=== PATIENT | female | born 2000 | race Two or more races ===

== ENCOUNTER 2024-03-30 10:51 | Emergency (ER) | payer OTHER ==
[~2024-03-30] VITALS: Ht 157.5 cm; Wt 59.0 kg
[2024-03-30] MEDS ORDERED: FOLIC ACID20 MG (11:02)
[2024-03-30] MEDS ORDERED: METOCLOPRAMIDE HCL 5 MG/ML VIAL IV ONE (12:45)
[2024-03-30] MEDS ORDERED: FAMOTIDINE/PF 20 MG/2 ML VIAL IV ONE (12:45)
[2024-03-30 13:30] LABS: HEMATOCRIT 34.1 % (36.0-45.00); HEMOGLOBIN 11.7 g/dL (12.0-15.00); MEAN CELL VOLUME 86.1 fL (80.00-100.00); MEAN CORPUSCULAR HEMOGLOBIN 29.6 pg (27.00-32.0); MEAN CORPUSCULAR HGB CONC 34.4 g/dl (32.0-36.0); PLATELET COUNT 316 K/uL (150-450); RED BLOOD COUNT 3.96 M/uL (4.00-6.00); RED CELL DISTRIBUTION WIDTH 15.5 % (11.5-14.5)
[2024-03-30 14:46] LABS: CALCIUM 9.7 mg/dL (8.5-10.1); CREATININE SERUM 0.62 mg/dL (0.55-1.02); GFR 119.28; POTASSIUM 4.24 mEq/L (3.5-5.1)
[2024-03-30] MEDS ORDERED: DICLEGIS DR 101 EACH PO (14:59)
== END 2024-03-30 17:03 | disposition home or self-care (01) ==
LOC: ER 10:53
PROVIDERS: General Practice
DX: O21.9 Vomiting of pregnancy, unspecified (principal); Z3A.09 9 weeks gestation of pregnancy

== ENCOUNTER 2024-04-29 13:05 | Emergency (ER) | payer OTHER ==
[~2024-04-29] VITALS: Ht 157.5 cm; Wt 61.7 kg
[~2024-04-29 13:05] MED LIST: DICLEGIS DR 101 EACH PO; FOLIC ACID20 MG
[2024-04-29 18:32] LABS: HEMATOCRIT 34.1 % (36.0-45.00); HEMOGLOBIN 11.8 g/dL (12.0-15.00); MEAN CELL VOLUME 86.6 fL (80.00-100.00); MEAN CORPUSCULAR HGB CONC 34.6 g/dl (32.0-36.0); PLATELET COUNT 289 K/uL (150-450); RED BLOOD COUNT 3.94 M/uL (4.00-6.00); RED CELL DISTRIBUTION WIDTH 15.3 % (11.5-14.5)
[2024-04-29] MEDS ORDERED: IPRATROPIUM/ALBUTEROL SULFATE 3 ML AMPUL.NEB IH SCH (20:00)
[2024-04-29] MEDS ORDERED: IPRATROPIUM/ALBUTEROL SULFATE 3 ML AMPUL.NEB IH ONE (20:39)
[2024-04-29] MEDS ORDERED: GILTUSS HONEY118 ML PO (22:31)
[2024-04-29] MEDS ORDERED: ALBUTEROL2.5 MG/3 M IH (22:34)
== END 2024-04-29 22:39 | disposition home or self-care (01) ==
LOC: ER 13:07
PROVIDERS: Preventive Medicine Public Health & General Preventive Medicine
DX: B34.9 Viral infection, unspecified (principal); Z20.822 Contact with and (suspected) exposure to COVID-19

== ENCOUNTER 2024-07-23 23:55 | Emergency (ER) | payer OTHER ==
[~2024-07-23] VITALS: Ht 167.6 cm; Wt 66.2 kg
[~2024-07-23 23:55] MED LIST changes: +ALBUTEROL2.5 MG/3 M IH; +GILTUSS HONEY118 ML PO
[2024-07-24] MEDS ORDERED: ORPHENADRINE CITRATE 30 MG/ML AMPUL IM STA (03:25)
[2024-07-24] MEDS ORDERED: TRAMADOL HCL 50 MG TABLET PO STA (03:27)
[2024-07-24] MEDS ORDERED: KETOROLAC TROMETHAMINE 60 MG VIAL IM ONE (03:34)
[2024-07-24] MEDS ORDERED: ORPHENADRINE CITRATE 30 MG/ML AMPUL ONE (03:39)
== END 2024-07-24 03:42 | disposition home or self-care (01) ==
LOC: ER 23:56
DX: M54.41 Lumbago with sciatica, right side (principal); Z3A.26 26 weeks gestation of pregnancy

== ENCOUNTER 2024-09-18 20:12 | Inpatient (IN) | payer OTHER ==
[~2024-09-18] VITALS: Ht 157.5 cm; Wt 68.0 kg
[2024-09-18 19:25] VITALS: BP 103/65
[2024-09-18] MEDS ORDERED: BETAMETHASONE ACETATE,SOD PHOS 30 MG/5 ML ML IM STA (20:27)
[2024-09-18] MEDS ORDERED: AMPICILLIN SODIUM 2,000 MG VIAL IV ONE (20:30)
[2024-09-18] MEDS ORDERED: RINGERS SOLUTION,LACTATED 1,000 ML IV SCH (20:30)
[2024-09-18 21:21] LABS: BASO % 0.5 % (0.1-1.2); EOS # 0.21 (0.04-0.54); EOS % 2.4 % (0.7-7.0); HEMATOCRIT 29.4 % (34.1-44.9); HEMOGLOBIN 9.4 g/dL (11.2-15.7); LYMPH % 18.2 % (19.3-53.1); MEAN CORPUSCULAR HEMOGLOBIN 27.3 pg (25.6-32.2); MONO # 0.59 (0.24-0.82); MONO % 6.7 % (4.7-12.5); NEUT # 6.26 (1.56-6.13); PLATELET COUNT 314 K/uL (163-369); RED BLOOD COUNT 3.44 M/uL (3.93-5.22); RED CELL DISTRIBUTION WIDTH 13.9 % (11.6-14.4)
[2024-09-18 21:22] LABS: PH,URINE 6.5 (5.0-8.0); URINE APPEARANCE Clear; URINE BILIRRUBIN Negative (NEGATIVE); URINE BLOOD Negative; URINE COLOR Yellow; URINE GLUCOSE Negative (NEGATIVE); URINE KETONE Negative (NEGATIVE); URINE LEUKOCYTE Small; URINE NITRATE Negative; URINE PROTEIN Negative (NEGATIVE); URINE UROBILINOGEN 0.2 E.U./dl
[2024-09-18 21:26] LABS: URINE BACTERIA 565.4 uL (0.0-1933); URINE EPITHELIAL CELLS 17.7 uL (0.0-38.8); URINE RBC 7.6 uL (0.0-20.8); URINE WBC 11.7 uL (0.0-23.2)
[2024-09-18] MEDS ORDERED: PRENATABS FA T1 EACH PO (21:49)
[2024-09-18 21:50] LABS: BILIRUBIN TOTAL 0.24 mg/dL (0.3-1.2); CALCIUM 9.3 mg/dL (8.5-10.1); CREATININE SERUM 0.64 mg/dL (0.55-1.02); GLOBULINA 3.8 G/DL (2.4-3.5); POTASSIUM 4.06 mEq/L (3.5-5.1); TOTAL PROTEIN 6.8 gm/dL (6.4-8.2)
[2024-09-18] MEDS ORDERED: ACETAMINOPHEN 500 MG GEL..CAP PO PRN (23:00)
[2024-09-18] MEDS ORDERED: NIFEDIPINE 30 MG TAB.SA.OSM PO SCH (23:00)
[2024-09-18 23:21] VITALS: BP 102/63
[2024-09-19] MEDS ORDERED: AMPICILLIN SODIUM 1,000 MG VIAL IV SCH (02:00)
[2024-09-19 03:57] VITALS: BP 93/53
[2024-09-19 07:30] VITALS: BP 95/57
[2024-09-19] MEDS ORDERED: SOD FERRIC GLUC COMPLX/SUCROSE 62.5 MG/5 ML AMPUL IV ONE (08:49)
[2024-09-19] MEDS ORDERED: SOD FERRIC GLUC COMPLX/SUCROSE 125 MG in 0.9 % SODIUM CHLORIDE 100 ML IV SCH (09:00)
[2024-09-19 12:30] VITALS: BP 98/63
[2024-09-19 14:34] VITALS: BP 112/70
[2024-09-19 15:56] VITALS: BP 109/68
[2024-09-19 20:00] VITALS: BP 102/52
[2024-09-19] MEDS ORDERED: BETAMETHASONE ACETATE,SOD PHOS 30 MG/5 ML ML IM NR (21:00)
[2024-09-20 00:29] VITALS: BP 99/55
[2024-09-20 08:00] VITALS: BP 92/60
== END 2024-09-20 13:39 | disposition home or self-care (01) | DRG 833 ==
LOC: OB/GYN 20:12 → LDR 20:12 → OB/GYN 09-19 13:54
PROVIDERS: ADMIT Obstetrics & Gynecology; ATTEND Obstetrics & Gynecology
PROC: 4A1HXCZ Monitoring of Products of Conception, Cardiac Rate, External Approach (ICD-10-PCS; principal; 2024-09-18)
PROC: BY4FZZZ Ultrasonography of Third Trimester, Single Fetus (ICD-10-PCS; 2024-09-20)
PROC: BU4CZZZ Ultrasonography of Uterus and Ovaries (ICD-10-PCS; 2024-09-20)
DX: O60.03 Preterm labor without delivery, third trimester (principal); O26.843 Uterine size-date discrepancy, third trimester; O36.8130 Decreased fetal movements, third trimester, not applicable or unspecified; O32.1XX0 Maternal care for breech presentation, not applicable or unspecified; Z3A.34 34 weeks gestation of pregnancy

== ENCOUNTER 2024-10-14 07:43 | Inpatient (IN) | payer OTHER ==
[~2024-10-14] VITALS: Ht 157.5 cm; Wt 2.7 kg
[~2024-10-14 07:43] MED LIST changes: +PRENATABS FA T1 EACH PO
[2024-10-14] MEDS ORDERED: CEFAZOLIN SODIUM 1,000 MG VIAL ONE (07:52)
[2024-10-14 08:37] LABS: BASO % 0.3 % (0.1-1.2); EOS # 0.14 (0.04-0.54); HEMATOCRIT 31.6 % (34.1-44.9); HEMOGLOBIN 10.1 g/dL (11.2-15.7); LYMPH # 1.25 (1.18-3.74); LYMPH % 18.2 % (19.3-53.1); MEAN CORPUSCULAR HEMOGLOBIN 26.9 pg (25.6-32.2); MONO # 0.45 (0.24-0.82); MONO % 6.5 % (4.7-12.5); NEUT # 4.94 (1.56-6.13); NEUT % 71.8 % (34.0-71.1); PLATELET COUNT 259 K/uL (163-369); RED BLOOD COUNT 3.76 M/uL (3.93-5.22); RED CELL DISTRIBUTION WIDTH 14.9 % (11.6-14.4)
[2024-10-14 08:40] LABS: PH,URINE 7.5 (5.0-8.0); URINE APPEARANCE Clear; URINE BILIRRUBIN Negative (NEGATIVE); URINE BLOOD Negative; URINE COLOR Yellow; URINE GLUCOSE Negative (NEGATIVE); URINE KETONE Negative (NEGATIVE); URINE LEUKOCYTE Large; URINE NITRATE Negative; URINE PROTEIN Negative (NEGATIVE); URINE UROBILINOGEN 0.2 E.U./dl
[2024-10-14 08:41] LABS: URINE EPITHELIAL CELLS 73.9 uL (0.0-38.8); URINE RBC 6.4 uL (0.0-20.8); URINE WBC 54.1 uL (0.0-23.2)
[2024-10-14 08:51] VITALS: BP 114/72
[2024-10-14 09:15] LABS: INR 0.97; PARTIAL THROMBOPLASTIN TIME 26.3 SECONDS (22.0-34.0); PROTHROMBIN TIME 10.6 SECONDS (9.0-11.5)
[2024-10-14 09:21] LABS: ALBUMIN 2.8 gm/dL (3.4-5.0); BILIRUBIN TOTAL 0.28 mg/dL (0.3-1.2); CALCIUM 9.4 mg/dL (8.5-10.1); CREATININE SERUM 0.63 mg/dL (0.55-1.02); GFR 116.1; GLOBULINA 3.5 G/DL (2.4-3.5); POTASSIUM 4.27 mEq/L (3.5-5.1); TOTAL PROTEIN 6.3 gm/dL (6.4-8.2)
[2024-10-14] MEDS ORDERED: CEFAZOLIN SODIUM 1,000 MG VIAL IV ONE (09:45)
[2024-10-14 11:18] VITALS: BP 101/64; O2SAT 100
[2024-10-14] MEDS ORDERED: OXYTOCIN 10 UNITS/ML VIAL ONE ×2 (15:06→21:02)
[2024-10-14] MEDS ORDERED: ERYTHROMYCIN BASE OPHT 1GM EACH TUBE OP ONE ×2 (15:06→16:30)
[2024-10-14] MEDS ORDERED: KETOROLAC TROMETHAMINE 30 MG VIAL IV NR (16:30)
[2024-10-14] MEDS ORDERED: RINGERS SOLUTION,LACTATED 1,000 ML IV SCH (16:30)
[2024-10-14] MEDS ORDERED: MORPHINE SULFATE 4 MG/ML CARTRIDGE IV PRN (16:30)
[2024-10-14] MEDS ORDERED: OXYTOCIN 1,000 ML IV SCH (16:30)
[2024-10-14] MEDS ORDERED: CHLORHEXIDINE GLUCONATE 120 ML BOTTLE TOP ONE (16:30)
[2024-10-14] MEDS ORDERED: ACETAMINOPHEN WITH CODEINE 1 UDTAB TABLET PO PRN (16:30)
[2024-10-14] MEDS ORDERED: SIMETHICONE 125 MG CAPSULE PO SCH (18:00)
[2024-10-14 21:35] VITALS: BP 110/74
[2024-10-14 22:16] LABS: BASO % 0.2 % (0.1-1.2); EOS # 0.01 (0.04-0.54); EOS % 0.1 % (0.7-7.0); HEMATOCRIT 31.5 % (34.1-44.9); HEMOGLOBIN 9.8 g/dL (11.2-15.7); LYMPH # 0.92 (1.18-3.74); LYMPH % 9.3 % (19.3-53.1); MEAN CORPUSCULAR HEMOGLOBIN 26.3 pg (25.6-32.2); MONO # 0.62 (0.24-0.82); MONO % 6.3 % (4.7-12.5); NEUT # 8.29 (1.56-6.13); NEUT % 83.8 % (34.0-71.1); PLATELET COUNT 263 K/uL (163-369); RED BLOOD COUNT 3.73 M/uL (3.93-5.22); RED CELL DISTRIBUTION WIDTH 14.7 % (11.6-14.4)
[2024-10-15 01:02] VITALS: BP 95/60
[2024-10-15] MEDS ORDERED: NAPROXEN 500 MG TABLET PO PRN (09:00)
[2024-10-15] MEDS ORDERED: DOCUSATE SODIUM 100MG CAP PO SCH (09:00)
[2024-10-15 09:37] VITALS: BP 109/70
[2024-10-15 16:26] VITALS: BP 103/69
[2024-10-16 01:23] VITALS: BP 95/60
[2024-10-16 08:00] VITALS: BP 112/73
[2024-10-16 17:00] VITALS: BP 107/79
[2024-10-17 00:19] VITALS: BP 123/70
[2024-10-17 08:00] VITALS: BP 114/73
[2024-10-17] MEDS ORDERED: NAPROXEN500 MG PO (11:30)
== END 2024-10-17 14:12 | disposition home or self-care (01) | DRG 788 ==
LOC: LDR 07:43 → O/R 07:43 → OB/GYN 16:51
PROVIDERS: Obstetrics & Gynecology; ADMIT Obstetrics & Gynecology; ATTEND Obstetrics & Gynecology
PROC: 4A1HXCZ Monitoring of Products of Conception, Cardiac Rate, External Approach (ICD-10-PCS; 2024-10-14)
PROC: 10D00Z1 Extraction of Products of Conception, Low, Open Approach (ICD-10-PCS; principal; 2024-10-14 15:30)
DX: O32.1XX0 Maternal care for breech presentation, not applicable or unspecified (principal); Z37.0 Single live birth; Z3A.38 38 weeks gestation of pregnancy